=== PATIENT | female | born 1985 | race Caucasian/White ===

== ENCOUNTER 2020-06-06 14:13 | Emergency (ER) | payer OTHER ==
[~2020-06-06] VITALS: Ht 160 cm; Wt 104.3 kg
[2020-06-06] MEDS ORDERED: FERROUS SULFAT325 MG PO (17:51)
[2020-06-06] MEDS ORDERED: MEDROXYPROGESTER5 MG PO (17:51)
== END 2020-06-06 17:32 | disposition home or self-care (01) ==
LOC: ER 14:13
DX: N92.5 Other specified irregular menstruation (principal); Z03.818 Encounter for observation for suspected exposure to other biological agents ruled out

== ENCOUNTER 2020-06-26 14:10 | Emergency (ER) | payer OTHER ==
[~2020-06-26] VITALS: Ht 160 cm; Wt 117.9 kg
[~2020-06-26 14:10] MED LIST: FERROUS SULFAT325 MG PO; MEDROXYPROGESTER5 MG PO
== END 2020-06-26 20:37 | disposition home or self-care (01) ==
LOC: ER 14:10
DX: D64.89 Other specified anemias (principal); N93.8 Other specified abnormal uterine and vaginal bleeding; R53.1 Weakness; R00.2 Palpitations